=== PATIENT | male | born 1935 | race Caucasian/White ===

== ENCOUNTER 2016-09-06 08:00 | Day surgery (SDC) | payer MEDICARE, BC ==
[~2016-09-06 08:00] MED LIST: EPINEPHrine 1:10,000 1 MG/10 ML Syringe ONE; Lidocaine 2% 5 ML SDV ONE; Midazolam 1 MG/ML 2 ML SDV ONE; Propofol 200 MG/20 ML SDV ONE; fentaNYL 100 MCG/2 ML SDV ONE
[2016-09-06] MEDS ORDERED: Propofol 200 MG/20 ML SDV IV ONE (08:35)
[2016-09-06] MEDS ORDERED: Midazolam 1 MG/ML 2 ML SDV IV ONE (08:35)
[2016-09-06] MEDS ORDERED: fentaNYL 100 MCG/2 ML SDV IV ONE (08:35)
[2016-09-06] MEDS ORDERED: EPINEPHrine 1:10,000 1 MG/10 ML Syringe ONE (08:51)
[2016-09-06] MEDS ORDERED: Lactated Ringers 1,000 ML IV SCH (09:00)
[2016-09-06] MEDS ORDERED: Sodium Chloride 0.9% 5 ML Syringe FLUSH PRN (09:00)
--- NOTE | 2016-09-06 09:08 | PCM.OPNOTE ---
- General Post-Op/Procedure Note Date of Surgery/Procedure: 09/06/16 Operative Procedure(s): Upper GI endoscopy and biopsies at the gastroesophageal junction. History of Andrew's esophagitis Findings: a 5 cm hiatal hernia is noted with mild inflammation. Biopsies were taken to rule out the possibility and follow up of Andrew's esophagitis Pre Op Diagnosis: Andrew's esophagitis, feeling of phlegm getting stuck in his throat. Post-Op Diagnosis: 5 cm hiatal hernia with mild inflammatory changes noted. Previous history of Andrew's esophagitis. Anesthesia Technique: MAC Secondary Surgeon: Bill Yee Complications: None Condition: Good Free Text/Narrative:: INFORMED CONSENT: Patient is here today for elective upper GI endoscopy. All aspects of this procedure have been discussed with the patient. All possible complications also, including possibility of perforation, infection, pain, bleeding, numbness of the throat, swallowing difficulty and unknown complications. In the event of perforation the patient may need surgical exploration to repair the defect. The patient understands fully well. Patient did not have any further questions for me at the end of my interview. The patient wishes for me to proceed. INSTRUMENT USED: Video gastroscope ANESTHESIA: [MAC] ASA CLASSIFICATION: [2] PROCEDURE PERFORMED: [upper GI endoscopy with biopsies] PHARYNX: Normal. ESOPHAGUS: Normal. Proximal: Normal. Middle: Normal. Lower: 5 cm hiatal hernia with mild inflammation. GE Junction: as above. STOMACH: Normal. Cardia: Normal. Fundus: Normal. Lesser Curvature: Normal. Greater Curvature: Normal. Antrum: Normal. Pylorus: Normal. DUODENUM: Normal. First Part: Normal. Second Part: Normal. Third Part: Normal. RETROFLEXION: Normal. BIOPSY: None. TOLERANCE: Excellent. COMPLICATIONS: None. Biopsies were taken from the gastroesophageal junction to rule out the possibility and follow up of Andrew's esophagitis
[2016-09-06 10:09] VITALS: BP 120/68
== END 2016-09-06 11:10 | disposition home or self-care (01) ==
LOC: KA.SDS 08:00
PROVIDERS: ATTEND Family Medicine
DX: K20.9 Esophagitis, unspecified (principal); B33.20 Viral carditis, unspecified; K44.9 Diaphragmatic hernia without obstruction or gangrene; K21.9 Gastro-esophageal reflux disease without esophagitis; I63.9 Cerebral infarction, unspecified; Z79.82 Long term (current) use of aspirin; Z79.899 Other long term (current) drug therapy; Z90.49 Acquired absence of other specified parts of digestive tract; Z98.890 Other specified postprocedural states
CPT/HCPCS: 43239; J0171; J2250; J2704; J3010; J7120; 00740; 88305

== ENCOUNTER 2016-09-22 16:08 | Emergency (ER) | payer MEDICARE, BC ==
[2016-09-22] MEDS: Sodium Chloride 0.9% 1,000 ML IV ONE ×2 (16:15→20:26)
[2016-09-22] MEDS ORDERED: Sodium Chloride 0.9% 5 ML Syringe FLUSH PRN (16:21)
--- NOTE | 2016-09-22 16:27 | EDM.PDOC ---
ED HPI GENERAL MEDICAL PROBLEM - General Chief Complaint: Neuro Symptoms/Deficits Stated Complaint: STROKE Time Seen by Provider: 09/22/16 16:15 Source of Information: Reports: Patient, Family History Limitations: Reports: No Limitations. Denies: Altered Mental Status - History of Present Illness INITIAL COMMENTS - FREE TEXT/NARRATIVE: 81 YO WM presents to ER with sudden onset left sided weakness. Pt reports he was having coffee at restaurant and doesn't remember how he got home. Pt reports he had a stroke 03/2016 without nursing home deficits. Pt without slurred speech, or dysphagia and without facial droop. Pt is alert and oriented x 3. Pt denies any headache, denies any chest pain or shortness of breath. Onset: Sudden Onset Date: 09/22/16 Onset Time: 16:00 Location: Reports: Generalized Severity: Mild Improves with: Reports: None Worsens with: Reports: None Associated Symptoms: Reports: No Other Symptoms - Related Data Allergies Allergy/AdvReac Type Severity Reaction Status Date / Time No Known Allergies Allergy Verified 09/06/16 10:08 Home Meds: Home Meds Omeprazole 20 mg PO ASDIRECTED PRN 06/08/13 [History] Aspirin [Halfprin] 81 mg PO BEDTIME 08/31/16 [History] Past Medical History HEENT History: Reports: Cataract, Impaired Vision Cardiovascular History: Reports: Blood Clots/VTE/DVT Other Respiratory History: power's Esophagus Gastrointestinal History: Reports: None Other Neuro History: silent stroke in - Past Surgical History HEENT Surgical History: Reports: Cataract Surgery Cardiovascular Surgical History: Reports: None Respiratory Surgical History: Reports: None GI Surgical History: Reports: EGD Neurological Surgical History: Reports: None Social & Family History - Tobacco Use Smoking Status *Q: Never Smoker Second Hand Smoke Exposure: No - Caffeine Use Caffeine Use: Reports: Coffee - Alcohol Use Days Per Week of Alcohol Use: 0 - Recreational Drug Use Recreational Drug Use: No ED ROS GENERAL - Review of Systems Review Of Systems: See Below Constitutional: Reports: No Symptoms HEENT: Reports: No Symptoms Respiratory: Reports: No Symptoms Cardiovascular: Reports: No Symptoms Endocrine: Reports: No Symptoms GI/Abdominal: Reports: No Symptoms : Reports: No Symptoms Musculoskeletal: Reports: No Symptoms Skin: Reports: No Symptoms Neurological: Reports: Difficulty Walking, Weakness, Gait Disturbance. Denies: Confusion, Dizziness, Headache, Trouble Speaking, Change in Speech Psychiatric: Reports: No Symptoms Hematologic/Lymphatic: Reports: No Symptoms Immunologic: Reports: No Symptoms ED EXAM, NEURO - Physical Exam Exam: See Below Exam Limited By: No Limitations General Appearance: Alert, WD/WN, Mild Distress Eye Exam: Bilateral Eye: EOMI, PERRL Ears: Normal External Exam, Normal Canal, Hearing Grossly Normal, Normal TMs Nose: Normal Inspection, Normal Mucosa, No Blood Throat/Mouth: Normal Inspection, Normal Lips, Normal Teeth, Normal Gums, Normal Oropharynx, Normal Voice, No Airway Compromise Head Exam: Atraumatic, Normocephalic Neck: Normal Inspection, Supple, Non-Tender, Full Range of Motion Respiratory/Chest: No Respiratory Distress, Lungs Clear, Normal Breath Sounds, No Accessory Muscle Use, Chest Non-Tender Cardiovascular: Normal Peripheral Pulses, Regular Rate, Rhythm, No Edema, No Gallop, No JVD, No Murmur, No Rub GI/Abdominal: Normal Bowel Sounds, Soft, Non-Tender, No Organomegaly, No Distention, No Abnormal Bruit, No Mass Neurological: Alert, Oriented x 3, Abnormal Gait, Abnormal Finger to Nose, Straight Leg Raise (R). No: Straight Leg Raise (L) Back Exam: Normal Inspection, Full Range of Motion, NT Extremities: Normal Inspection, Normal Range of Motion, Non-Tender, No Pedal Edema, Normal Capillary Refill Psychiatric: Normal Affect, Anxious Skin Exam: Warm, Dry, Intact, Normal Color, No Rash EKG INTERPRETATION EKG Date: 09/22/16 Time: 16:33 Rhythm: NSR Rate (Beats/Min): 57 [place]: Normal P-Wave: Present QRS: Normal ST-T: Normal QT: Normal Comparison: NA - No Prior EKG Course - Orders/Labs/Meds Orders: Active Orders 24 hr Category Date Time Status EKG Documentation Completion [RC] ASDIRECTED Care 09/22/16 16:22 Active Peripheral IV Care [RC] . DIRECTED Care 09/22/16 16:22 Active Chest 1V Frontal [CR] Stat Exams 09/22/16 16:21 Ordered Head wo Cont [CT] Stat Exams 09/22/16 16:21 Taken Sodium Chloride 0.9% [Normal Saline] 1,000 ml Med 09/22/16 16:21 Active IV .BOLUS Sodium Chloride 0.9% [Syrex Flush] Med 09/22/16 16:21 Active 5 ml FLUSH Q8HR PRN Peripheral IV Insertion Adult [OM.PC] Routine Oth 09/22/16 16:21 Ordered EKG 12 Lead [EK] Routine Ther 09/22/16 16:21 Ordered Medication Orders Sodium Chloride (Normal Saline) 1,000 mls @ 999 mls/hr IV .BOLUS ONE Stop: 09/22/16 17:21 Sodium Chloride (Syrex Flush) 5 ml FLUSH Q8HR PRN PRN Reason: Keep Vein Open Labs: Laboratory Tests 09/22/16 09/22/16 09/22/16 Range/Units 16:15 16:15 16:15 WBC 8.0 (5.0-10.0) 10^3/uL RBC 5.30 (4.50-6.00) 10^6/uL Hgb 15.5 (13.0-17.0) g/dL Hct 47.0 (40.0-52.0) % MCV 88.8 (82.0-92.0) fL MCH 29.3 (27.0-31.0) pg MCHC 33.0 (32.0-36.0) g/dL RDW 12.8 (11.5-14.5) % Plt Count 188 (150-300) 10^3/uL MPV 7.9 (7.4-10.4) fL Neut % (Auto) 52.9 (50.0-70.0) % Lymph % (Auto) 30.1 (20.0-40.0) % [place] % (Auto) 12.8 H (2.0-8.0) % Eos % (Auto) 3.4 H (1.0-3.0) % Baso % (Auto) 0.8 (0.0-1.0) % Neut # (Auto) 4.2 (2.5-7.0) 10^3/uL Lymph # (Auto) 2.4 (1.0-4.0) 10^3/uL [place] # (Auto) 1.0 H (0.1-0.8) 10^3/uL Eos # (Auto) 0.3 (0.1-0.3) 10^3/uL Baso # (Auto) 0.1 (0.0-0.1) 10^3/uL PT 10.4 (8.9-11.4) SEC INR 1.0 (0.9-1.1) APTT 24.4 (20.8-31.2) SEC Sodium 139 (136-145) mmol/L Potassium 4.1 (3.3-5.3) mmol/L Chloride 103 (98-115) mmol/L Carbon Dioxide 23.9 (21.0-32.0) mmol/L BUN 17 (6-25) mg/dL Creatinine 0.87 (0.51-1.17) mg/dL Est Cr Clr Drug Dosing TNP Estimated GFR (MDRD) > 60 mL/min Glucose 114 H (70-110) mg/dL Calcium 8.8 (8.7-10.3) mg/dL Total Bilirubin 0.4 (0.2-1.0) mg/dL AST 14 L (15-37) U/L ALT 24 (12-78) U/L Alkaline Phosphatase 92 (46-116) IU/L Creatine Kinase 81 (26-276) U/L CK-MB (CK-2) 0.80 (0.00-4.30) ng/mL Troponin I < 0.04 (0.00-0.070) ng/mL Total Protein 8.0 (6.4-8.2) g/dL Albumin 4.04 (3.00-4.80) g/dL Meds: Medications Generic Name Dose Route Start Last Admin Trade Name Freq PRN Reason Stop Dose Admin Sodium Chloride 1,000 mls @ 999 mls/hr 09/22/16 16:21 Normal Saline IV 09/22/16 17:21 .BOLUS ONE Sodium Chloride 5 ml 09/22/16 16:21 Syrex Flush FLUSH Q8HR PRN Keep Vein Open - Radiology Interpretation Free Text/Narrative:: CT Head- NAD CXR- NAD Departure - Departure Time of Disposition: 17:04 Disposition: DC/Tfer to Acute Hospital 02 Condition: Serious Clinical Impression: CVA (cerebral vascular accident) Qualifiers: CVA mechanism: unspecified Qualified Code(s): I63.9 - Cerebral infarction, unspecified - Discharge Information Forms: Interfacility Transfer EMTALA - My Orders Last 24 Hours: My Active Orders 09/22/16 16:21 Chest 1V Frontal [CR] Stat Head wo Cont [CT] Stat Sodium Chloride 0.9% [Normal Saline] 1,000 ml IV .BOLUS Sodium Chloride 0.9% [Syrex Flush] 5 ml FLUSH Q8HR PRN Peripheral IV Insertion Adult [OM.PC] Routine EKG 12 Lead [EK] Routine 09/22/16 16:22 EKG Documentation Completion [RC] ASDIRECTED Peripheral IV Care [RC] . DIRECTED - Assessment/Plan Last 24 Hours: My Active Orders 09/22/16 16:21 Chest 1V Frontal [CR] Stat Head wo Cont [CT] Stat Sodium Chloride 0.9% [Normal Saline] 1,000 ml IV .BOLUS Sodium Chloride 0.9% [Syrex Flush] 5 ml FLUSH Q8HR PRN Peripheral IV Insertion Adult [OM.PC] Routine EKG 12 Lead [EK] Routine 09/22/16 16:22 EKG Documentation Completion [RC] ASDIRECTED Peripheral IV Care [RC] . DIRECTED Assessment:: 1. CVA- left sided deficits and neglect Plan: 1. Discussed case with Dr Dontrell Sinha who accepted transfer 2. supportive care 3. transfer by ALS
[2016-09-22 16:53] LABS: CHLORIDE,CL 103 mmol/L (98-115); SODIUM,NA 139 mmol/L (136-145)
[2016-09-22] MEDS ORDERED: Aspirin 81 MG Tab.Chew PO ONE (17:10)
[2016-09-22 19:09] VITALS: BP 145/76
== END 2016-09-22 17:30 ==
LOC: KA.ED 16:08
DX: I63.9 Cerebral infarction, unspecified (principal); H54.7 Unspecified visual loss
CPT/HCPCS: 36415; 70450; 71010; 80053; 82550; 82553; 84484; 85025; 85610; 85730; 93005; 96360; 99285; J7030

== ENCOUNTER 2016-10-04 14:20 | Inpatient (IN) | payer MEDICARE, BC ==
[2016-10-04] MEDS: Glycopyrrolate 0.2 MG/ML 5 ML MDV IVPUSH SCH ×2 (19:39→23:14)
[2016-10-04] MEDS: Sodium Chloride 0.9% 5 ML Syringe FLUSH PRN (19:46)
[2016-10-04] MEDS: Morphine 2 MG/ML Syringe IVPUSH PRN (23:16)
[2016-10-05] MEDS: LORazepam 2 MG/ML SDV IV PRN ×3 (00:11→22:37)
[2016-10-05] MEDS: Morphine 2 MG/ML Syringe IVPUSH PRN ×7 (01:10→22:38)
[2016-10-05] MEDS: Glycopyrrolate 0.2 MG/ML 5 ML MDV IVPUSH SCH ×6 (03:07→22:36)
--- NOTE | 2016-10-05 08:45 | PCM.HP ---
H&P History of Present Illness - General Date of Service: 10/05/16 Admit Problem/Dx: Admission Diagnosis/Problem Admission Diagnosis/Problem Subarachnoid hemorrhage Source of Information: Old Records, RN - History of Present Illness Initial Comments - Free Text/Narative: This 81-year-old gentleman was transferred here at [facility] for swing bed therapy for comfort cares after the patient sustained a intracranial hemorrhage. He was transferred to [facility] on 09/23/16 for an intracranial hemorrhage and following administration of tPA for stroke-like symptoms. The patient had experienced confusion and stroke symptoms and was taken here at [facility] where he was suspected to have an acute stroke. Patient was transferred to [facility] in [facility] where he was administered tPA. A subsequent repeat head CT revealed interval development of intracranial hemorrhage. He was then transferred from [place] to [facility] for neurosurgery consultation however due to the location of the bleed, patient was not a candidate for intervention. While he was in [facility] the patient started developing central febrile unknown etiology as his blood culture surveillance remain negative, lumbar puncture could not be obtained due to ICH. He was given empiric IV antibiotics. I repeats CT revealing significant interval changes in terms of ICH with right temporal/parietal hemorrhage along with midline shift, he did not do well throughout the hospitalization and he declined in condition prompting the family to desire comfort care closer to home here at [place]. - Related Data Allergies/Adverse Reactions: Allergies Allergy/AdvReac Type Severity Reaction Status Date / Time No Known Allergies Allergy Verified 09/22/16 18:52 Past Medical History HEENT History: Reports: Cataract, Impaired Vision Cardiovascular History: Reports: Blood Clots/VTE/DVT Other Respiratory History: power's Esophagus Gastrointestinal History: Reports: None Other Neuro History: silent stroke in - Past Surgical History HEENT Surgical History: Reports: Cataract Surgery Cardiovascular Surgical History: Reports: None Respiratory Surgical History: Reports: None GI Surgical History: Reports: EGD Neurological Surgical History: Reports: None Social & Family History - Tobacco Use Smoking Status *Q: Never Smoker Second Hand Smoke Exposure: No - Caffeine Use Caffeine Use: Reports: Coffee - Alcohol Use Days Per Week of Alcohol Use: 0 - Recreational Drug Use Recreational Drug Use: No H&P Review of Systems - Review of Systems: Review Of Systems: Unable To Obtain General: Denies: Fever Exam - Exam Exam: See Below - Vital Signs Vital Signs: Last Vital Signs Temp 99.1 F 10/05/16 04:57 Pulse 116 H 10/05/16 04:57 Resp 36 H 10/05/16 04:57 BP 122/69 10/05/16 04:57 Pulse Ox 89 L 10/05/16 06:00 Weight: 143 lb 4 oz - Exam Quality Assessment: Supplemental Oxygen General: Obtunded. No: Alert, Oriented HEENT: Pupils Equal Neck: Supple Lungs: Rhonchi Cardiovascular: Tachycardia GI/Abdominal Exam: Soft, Abnormal Bowel Sounds Neurological: No: Cranial Nerves Intact, Normal Tone, Sensation Intact Neuro Extensive - Mental Status: No: Alert, Oriented x3 Neuro Extensive - Motor, Sensory, Reflexes: Abnormal Reflexes, Motor/Sensory Deficits Psychiatric: No: Alert *Q Meaningful Use (ADM) - VTE *Q VTE Criteria *Q: - Stroke *Q Stroke Criteria *Q: - AMI *Q AMI Criteria *Q: Problem List Initiated/Reviewed/Updated: Yes Orders Last 24hrs: Active Orders 24 hr Category Date Time Status Patient Status [ADT] Routine ADT 10/04/16 19:00 Ordered Bedrest Bedside Commode [RC] DAILY Care 10/04/16 17:32 Active Oxygen Therapy [RC] .PRN Care 10/04/16 17:33 Active Pulse Oximetry [RC] .PRN Care 10/04/16 17:41 Active Consult to Spiritual Care [CONS] Routine Cons 10/04/16 17:32 Active Nothing per Oral Now Diet [DIET] Diet 10/04/16 Dinner Active Acetaminophen [Tylenol] Med 10/04/16 17:32 Active 650 mg RECTAL Q4H PRN Glycopyrrolate [Robinul] Med 10/04/16 19:00 Active 0.1 mg IVPUSH Q4H LORazepam [Ativan] Med 10/04/16 17:32 Active 1 mg IV Q6H PRN Morphine Med 10/04/16 17:32 Active 2 mg IVPUSH Q1H PRN Sodium Chloride 0.9% [Syrex Flush] Med 10/04/16 17:32 Active 5 ml FLUSH Q8HR PRN Peripheral IV Insertion Adult [OM.PC] Routine Oth 10/04/16 17:32 Ordered Resuscitation Status Routine Resus Stat 10/04/16 17:32 Ordered Medication Orders Acetaminophen (Tylenol) 650 mg RECTAL Q4H PRN PRN Reason: Pain (mild 1-3) Glycopyrrolate (Robinul) 0.1 mg IVPUSH Q4H IVETTE Last Admin: 10/05/16 06:37 Dose: 0.1 mg Admin: 10/05/16 03:07 Dose: 0.1 mg Admin: 10/04/16 23:14 Dose: 0.1 mg Admin: 10/04/16 19:39 Dose: 0.1 mg Lorazepam (Ativan) 1 mg IV Q6H PRN PRN Reason: Nausea/Vomiting Last Admin: 10/05/16 06:37 Dose: 1 mg Admin: 10/05/16 00:11 Dose: 1 mg Morphine Sulfate (Morphine) 2 mg IVPUSH Q1H PRN PRN Reason: Pain (severe 7-10) Last Admin: 10/05/16 07:00 Dose: 2 mg Admin: 10/05/16 05:33 Dose: 2 mg Admin: 10/05/16 03:13 Dose: 2 mg Admin: 10/05/16 01:10 Dose: 2 mg Admin: 10/04/16 23:16 Dose: 2 mg Sodium Chloride (Syrex Flush) 5 ml FLUSH Q8HR PRN PRN Reason: Keep Vein Open Last Admin: 10/04/16 19:46 Dose: 5 ml Assessment/Plan Comment:: HISTORY OF PRESENT ILLNESS This 81-year-old gentleman was transferred here at [facility] for swing bed therapy for comfort cares after the patient sustained a intracranial hemorrhage. He was transferred to [facility] on 09/23/16 for an intracranial hemorrhage and following administration of tPA for stroke-like symptoms. The patient had experienced confusion and stroke symptoms and was taken here at [facility] where he was suspected to have an acute stroke. Patient was transferred to [facility] in [facility] where he was administered tPA. A subsequent repeat head CT revealed interval development of intracranial hemorrhage. He was then transferred from [place] to [facility] for neurosurgery consultation however due to the location of the bleed, patient was not a candidate for intervention. While he was in [facility] the patient started developing central febrile unknown etiology as his blood culture surveillance remain negative, lumbar puncture could not be obtained due to ICH. He was given empiric IV antibiotics. I repeats CT revealing significant interval changes in terms of ICH with right temporal/parietal hemorrhage along with midline shift, he did not do well throughout the hospitalization and he declined in condition prompting the family to desire comfort care closer to home here at [place]. DNR status comfort cares, DO NOT RESUSCITATE Assessment/plan Status post intracranial hemorrhage History of CVA Plan is for expectant management, comfort care measures, long visit with patient 's son and he is in agreement with plan.
[2016-10-05] MEDS: Sodium Chloride 0.9% 5 ML Syringe FLUSH PRN (14:06)
[2016-10-06] MEDS: Glycopyrrolate 0.2 MG/ML 5 ML MDV IVPUSH SCH ×6 (03:00→22:56)
[2016-10-06] MEDS: Morphine 2 MG/ML Syringe IVPUSH PRN ×7 (03:00→22:57)
[2016-10-06] MEDS: LORazepam 2 MG/ML SDV IV PRN ×3 (06:49→18:31)
[2016-10-06] MEDS: Sodium Chloride 0.9% 5 ML Syringe FLUSH PRN (18:36)
[2016-10-07] MEDS: LORazepam 2 MG/ML SDV IV PRN (02:48)
[2016-10-07] MEDS: Glycopyrrolate 0.2 MG/ML 5 ML MDV IVPUSH SCH ×4 (02:48→15:05)
[2016-10-07] MEDS: Morphine 2 MG/ML Syringe IVPUSH PRN ×2 (02:48→06:45)
[2016-10-07] MEDS: Morphine PF 30 MG/30 ML PCA Vial IV SCH (10:52)
[2016-10-07] MEDS: Sodium Chloride 0.9% 500 ML IV SCH (10:54)
[2016-10-07] MEDS: Acetaminophen 650 MG Supp RECTAL PRN (18:12)
[2016-10-08] MEDS: LORazepam 2 MG/ML SDV IV PRN (02:54)
[2016-10-08] MEDS: Glycopyrrolate 0.2 MG/ML 5 ML MDV IVPUSH SCH ×7 (02:56→22:21)
[2016-10-08] MEDS: Acetaminophen 650 MG Supp RECTAL PRN ×2 (03:08→06:21)
--- NOTE | 2016-10-08 09:12 | PCM.PN ---
- General Info Date of Service: 10/08/16 Subjective Update: Patient appears comfortable, unable to perform review of systems due unconscious /obtunded. Patient comfort cares. Morphine increased to 1 mg per hour basal rate Functional Status: Reports: Pain Controlled (Morphine increased to 1 mg per hour basal rate) - Review of Systems General: Reports: Fever Pulmonary: Reports: Shortness of Breath - Patient Data Vitals - Most Recent: Last Vital Signs Temp 99.3 F 10/08/16 06:52 Pulse 116 H 10/08/16 05:53 Resp 36 H 10/08/16 05:53 BP 109/63 10/08/16 05:53 Pulse Ox 85 L 10/08/16 07:00 Weight - Most Recent: 143 lb 4 oz I&O - Last 24 Hours: Intake & Output 10/07/16 10/08/16 10/08/16 22:59 06:59 14:59 Intake Total 154 120 Output Total 250 400 Balance -96 -280 Med Orders - Current: Current Medications Acetaminophen (Tylenol) 650 mg RECTAL Q4H PRN PRN Reason: Pain (mild 1-3) Last Admin: 10/08/16 06:21 Dose: 650 mg Glycopyrrolate (Robinul) 0.1 mg IVPUSH Q4H [facility] Last Admin: 10/08/16 06:48 Dose: 0.1 mg Sodium Chloride (Normal Saline) 500 mls @ 20 mls/hr IV DAILY@1030 [facility] Last Admin: 10/07/16 10:54 Dose: 20 mls/hr Lorazepam (Ativan) 1 mg IV Q6H PRN PRN Reason: Nausea/Vomiting Last Admin: 10/08/16 02:54 Dose: 1 mg Morphine Sulfate (Morphine Chainstitch Seat Joiner 30 Mg In 30 Ml) 30 mg IV SEECOMMENT [facility] PRN Reason: Protocol Last Admin: 10/07/16 10:52 Dose: 30 mg Sodium Chloride (Syrex Flush) 5 ml FLUSH Q8HR PRN PRN Reason: Keep Vein Open Last Admin: 10/06/16 18:36 Dose: 5 ml Discontinued Medications Morphine Sulfate (Morphine) 2 mg IVPUSH Q1H PRN PRN Reason: Pain (severe 7-10) Last Admin: 10/07/16 06:45 Dose: 2 mg - Exam Quality Assessment: Supplemental Oxygen General: Obtunded. No: Alert, Oriented HEENT: Pupils Reactive Lungs: No: Normal Respiratory Effort Cardiovascular: Tachycardia Neurological: Other (Negative withdrawal to stimulus). No: Normal Tone, Sensation Intact Psy/Mental Status: No: Alert - Problem List Review Problem List Initiated/Reviewed/Updated: Yes - My Orders Last 24 Hours: My Active Orders 10/07/16 10:00 Morphine PF [Morphine DELIVERY DIRECTOR 30 MG in 30 ML] 30 mg IV SEECOMMENT 10/07/16 10:30 Sodium Chloride 0.9% [Normal Saline] 500 ml IV DAILY@1030 - Plan Plan:: HISTORY OF PRESENT ILLNESS This 81-year-old gentleman was transferred here at [facility] for swing bed therapy for comfort cares after the patient sustained a intracranial hemorrhage. He was transferred to [facility] on 09/23/16 for an intracranial hemorrhage and following administration of tPA for stroke-like symptoms. The patient had experienced confusion and stroke symptoms and was taken here at [facility] where he was suspected to have an acute stroke. Patient was transferred to [facility] in [facility] where he was administered tPA. A subsequent repeat head CT revealed interval development of intracranial hemorrhage. He was then transferred from [place] to [facility] for neurosurgery consultation however due to the location of the bleed, patient was not a candidate for intervention. While he was in [facility] the patient started developing central febrile unknown etiology as his blood culture surveillance remain negative, lumbar puncture could not be obtained due to ICH. He was given empiric IV antibiotics. I repeats CT revealing significant interval changes in terms of ICH with right temporal/parietal hemorrhage along with midline shift, he did not do well throughout the hospitalization and he declined in condition prompting the family to desire comfort care closer to home here at [place]. DNR status comfort cares, DO NOT RESUSCITATE Assessment/plan Status post intracranial hemorrhage History of CVA Plan is for expectant management, comfort care measures, Patient appears comfortable, Morphine increased to 1 mg per hour basal rate.
[2016-10-08] MEDS: Sodium Chloride 0.9% 500 ML IV SCH (11:10)
[2016-10-08] MEDS: Morphine PF 30 MG/30 ML PCA Vial IV SCH (15:13)
[2016-10-09] MEDS: Glycopyrrolate 0.2 MG/ML 5 ML MDV IVPUSH SCH ×2 (03:19→06:21)
[2016-10-09 06:27] VITALS: BP 115/61
[2016-10-09] MEDS: Acetaminophen 650 MG Supp RECTAL PRN ×2 (06:28→15:57)
[2016-10-09] MEDS: Sodium Chloride 0.9% 500 ML IV SCH ×2 (09:05→09:35)
[2016-10-09] MEDS ORDERED: Glycopyrrolate 0.2 MG/ML 5 ML MDV IVPUSH PRN ×2 (09:17→16:17)
[2016-10-09] MEDS: LORazepam 2 MG/ML SDV IV PRN ×2 (12:02→18:02)
[2016-10-09] MEDS ORDERED: Morphine 4 MG/ML Syringe IVPUSH ONE (16:30)
[2016-10-09] MEDS: Morphine PF 30 MG/30 ML PCA Vial IV SCH (19:28)
[2016-10-09] MEDS ORDERED: Morphine PF 30 MG/30 ML PCA Vial IV ONE (20:00)
--- NOTE | 2016-10-10 11:01 | PCM.DCSUM1 ---
Discharge Summary - Hospital Course Free Text/Narrative:: Mr. Villanueva is a 81-year-old gentleman who was transferred here for swing bed therapy for comfort care after the patient sustained a intracranial hemorrhage. He initially presented with confusion and stroke-like symptoms to the [facility] ED and was transferred for presumed acute isceimic stroke. He was transferred to [facility] in [place], [place], where he was administered tPA. A subsequent repeat head CT revealed interval development of intracranial hemorrhage and he was transferred to [facility] for neurosurgery consultation , however due to the location of the bleed he was not a candidate for intervention. While he was in [facility] the patient started developing central febrile and lumbar puncture could not be obtained due to ICH. He was given empiric IV antibiotics, but cultures were without growth. Repeat CT revealed significant interval changes in terms of ICH with right temporal/ parietal hemorrhage along with midline shift. His condition continued to decline prompting the family to desire comfort care closer to home here in [place]. He was admitted for comfort cares under swing bed status and in the produce assistant of 10/10/16. - Discharge Data Discharge Date: 10/10/16 Discharge Disposition: 20 Preliminary Cause of *Q: Other_Special Instruction (hemorrhagic CVA) Event(s) Leading to Patient's *Q: See hospital course. Condition: - Patient Summary/Data Consults: Consultations 10/04/16 17:32 Consult to Spiritual Care [CONS] Routine - Discharge Plan - Patient Data Vitals - Most Recent: Last Vital Signs Temp 37.5 C 10/09/16 15:57 Pulse 121 H 10/09/16 06:26 Resp 32 H 10/09/16 06:26 BP 115/61 10/09/16 06:26 Pulse Ox 85 L 10/08/16 07:00 Weight - Most Recent: 64.977 kg I&O - Last 24 hours: Intake & Output 10/09/16 10/10/16 10/10/16 22:59 06:59 14:59 Intake Total 170 132 Output Total 150 Balance 20 132 Med Orders - Current: Current Medications Discontinued Medications Acetaminophen (Tylenol) 650 mg RECTAL Q4H PRN PRN Reason: Pain (mild 1-3) Last Admin: 10/09/16 15:57 Dose: 650 mg Glycopyrrolate (Robinul) 0.1 mg IVPUSH Q4H [facility] Last Admin: 10/09/16 06:21 Dose: 0.1 mg Glycopyrrolate (Robinul) 0.1 mg IVPUSH Q4H PRN PRN Reason: secretions Last Admin: 10/09/16 15:56 Dose: 0.1 mg Glycopyrrolate (Robinul) 0.2 mg IVPUSH Q4H PRN PRN Reason: secretions Last Admin: 10/09/16 16:35 Dose: 0.1 mg Sodium Chloride (Normal Saline) 500 mls @ 20 mls/hr IV DAILY@1030 IVETTE Last Admin: 10/09/16 09:35 Dose: Not Given Lorazepam (Ativan) 1 mg IV Q6H PRN PRN Reason: Nausea/Vomiting Last Admin: 10/09/16 18:02 Dose: 1 mg Morphine Sulfate (Morphine) 2 mg IVPUSH Q1H PRN PRN Reason: Pain (severe 7-10) Last Admin: 10/07/16 06:45 Dose: 2 mg Morphine Sulfate (Morphine [employer] Sheet Supervisor 30 Mg In 30 Ml) 30 mg IV SEECOMMENT [facility] PRN Reason: Protocol Last Admin: 10/09/16 19:28 Dose: 30 mg Morphine Sulfate (Morphine) 4 mg IVPUSH ONETIME ONE Stop: 10/09/16 16:31 Last Admin: 10/09/16 16:34 Dose: 4 mg Morphine Sulfate (Morphine [employer] Sheet Supervisor 30 Mg In 30 Ml) 2 mg IV ONETIME ONE Stop: 10/09/16 20:01 Last Admin: 10/09/16 20:06 Dose: Not Given Sodium Chloride (Syrex Flush) 5 ml FLUSH Q8HR PRN PRN Reason: Keep Vein Open Last Admin: 10/06/16 18:36 Dose: 5 ml *Q Meaningful Use (DIS) - VTE *Q VTE Criteria *Q: - Stroke *Q Stroke Criteria *Q: - AMI *Q AMI Criteria *Q:
== END 2016-10-10 03:15 | disposition expired | DRG 66 ==
LOC: KA.MS 19:07
PROVIDERS: ADMIT Family Medicine; ATTEND Family Medicine
DX: I60.9 Nontraumatic subarachnoid hemorrhage, unspecified (principal); Z51.5 Encounter for palliative care; Z86.718 Personal history of other venous thrombosis and embolism; Z66 Do not resuscitate
CPT/HCPCS: A9270-GY; J2060; J2270; J2274; J3490; J7040